=== PATIENT | female | born 1940 | race Caucasian/White ===

== ENCOUNTER 2017-12-23 06:49 | Day surgery (SDC) | payer OTHER ==
[~2017-12-23 06:49] MED LIST: AMOX1TAB12 PO; GABAPENTIN300 MG PO; METFORMIN HCL500 MG PO; NITROFURANTOIN100 MG PO; RESTORIL15 MG PO; SPIRIVA RESPIMAT4 G1 IH; XANAX0.25 MG PO; XANAX2 MG PO
[2017-12-23] MEDS ORDERED: KEFLEX500 MG PO (13:00)
[2017-12-23] MEDS ORDERED: URIN D.S. TABL1 EACH PO (13:00)
== END 2017-12-23 16:45 | disposition home or self-care (01) ==
LOC: CIR.AMB 06:49
DX: N30.80 Other cystitis without hematuria (principal)